=== PATIENT | male | born 1965 | race Caucasian/White ===

== ENCOUNTER 2019-10-26 09:04 | Observation (INO) | payer OTHER ==
[~2019-10-26] VITALS: Ht 182.9 cm; Wt 89.5 kg
--- NOTE | 2019-10-26 09:47 | NUR ---
THIS IS A 54 YO M W/ C/O 3 EPISODES FOR [facility] CP 8/10 RADIATING INTO LT NECK UP INTO HEAD PRODUCING TINGLING. PT REPORTS NOW HAS CONSISTENT CHEST PRESSURE 2/10. PT DENIES CARDIAC HX. PT RESTING ON VolpitNEY W/ CALL LIGHT IN REACH, CONNECTED TO ALL MONTIORING, VSS, NADN, EKG OBTAINED AND GIVEN TO ED MD. 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 NO NITRO GIVEN. AT BEDSIDE FOR ED EVAL.
--- NOTE | 2019-10-26 10:25 | NUR ---
PT REPORTS ANOTHER EPISODE OF CHEST PAIN THAT LASTED A FEW SECONDS APPROX 10 MINUTES AGO. RHYTHM REVIEWED ON MONITOR, 4 OCCASIONAL PVCS OBSERVED. UPDATED. PT RESTING ON Designer MaterialRNEY W/ CALL LIGHT IN REACH, RESP EVEN AND UNLABORED, NADN. VSS.
[2019-10-26 10:27] LABS: BASOPHILS # (AUTO) 0.06 x10^3/uL (0-0.1); BASOPHILS % (AUTO) 1 % (0-1); EOSINOPHILS # (AUTO) 0.02 x10^3/uL (0-0.4); EOSINOPHILS % (AUTO) 0 % (1-7); LYMPHOCYTES # (AUTO) 1.07 x10^3/uL (1-3.4); LYMPHOCYTES % (AUTO) 11 % (22-44); MD NO; MEAN CORPUSCULAR HGB CONC 33.2 g/dL (33.2-36.2); MEAN CORPUSCULAR VOLUME 96.3 fL (81-97); MEAN PLATELET VOLUME 8.3 fL (7.4-10.4); MONOCYTES % (AUTO) 7 % (2-9); NEUTROPHILS # (AUTO) 8.19 x10^3/uL (1.8-6.8); NEUTROPHILS % (AUTO) 82 % (42-75); PLATELET COUNT 150 x10^3/uL (130-400); RED BLOOD COUNT 4.27 x10^6/uL (4.38-5.82); RED CELL DISTRIBUTION WIDTH 12.8 % (9.4-14.8)
[2019-10-26 10:37] LABS: ALBUMIN 3.8 g/dL (3.4-5.0); ANION GAP 7 mmol/L (5-15); CALCIUM 9.2 mg/dL (8.5-10.1); CHLORIDE 109 mmol/L (98-107); CREATININE 1.19 mg/dL (0.7-1.3)
[2019-10-26 10:40] LABS: TROPONIN I < 0.015 ng/mL (0.000-0.045)
--- NOTE | 2019-10-26 10:47 | NUR ---
ALL TESTS RESULTED. PT IS UP FOR RECHECK AT THIS TIME.
--- NOTE | 2019-10-26 10:50 | NUR ---
PT REQUESTING PAIN MEDS FOR RT FOOT PAIN. UPDATED.
[2019-10-26] MEDS ORDERED: HYDROcodone/APAP 5/325 TABLET ONE (10:52)
--- NOTE | 2019-10-26 10:55 | NUR ---
PT MEDICATED PER EMAR. VSS, NADN. AWAITING RECHECK.
--- NOTE | 2019-10-26 10:57 | NUR ---
4 OCCASIONAL PVCS OBSERVED ON MONITOR WHILE IN ROOM W/ PT.
[2019-10-26] MEDS ORDERED: HYDROcodone/APAP 5/325 TABLET PO ONE (11:00)
[2019-10-26] MEDS ORDERED: ASPIRIN 81 MG TABLET CHEW PO ONE (12:00)
[2019-10-26] MEDS ORDERED: SODIUM CHLORIDE FLUSH 10ML SYR IVF PRN (12:30)
[2019-10-26 14:13] VITALS: BP 120/79
[2019-10-26] MEDS ORDERED: HEPARIN 5,000 UNITS/ML, 1ML ONE (14:56)
[2019-10-26] MEDS ORDERED: LABETALOL 5MG/ML, 20ML IVPush PRN (15:00)
[2019-10-26] MEDS ORDERED: ONDANSETRON 2MG/ML, 2ML IVPush PRN (15:00)
[2019-10-26] MEDS ORDERED: ACETAMINOPHEN 325 MG TABLET PO PRN (15:00)
[2019-10-26] MEDS ORDERED: hydrALAzine 20 MG/ML, 1ML IVPush PRN (15:00)
[2019-10-26] MEDS ORDERED: PROMETHAZINE 25 MG/ML, 1ML IM PRN (15:00)
[2019-10-26] MEDS ORDERED: MAALOX/HYOSCYAMINE/LIDOCAINE 45 ML BTL PO PRN (15:00)
[2019-10-26] MEDS ORDERED: NITROGLYCERIN 0.4 MG BOTTLE (25 TABS) SL PRN (15:00)
[2019-10-26] MEDS ORDERED: morphine SULFATE 10 MG/ML, 1ML IVPush PRN (15:00)
[2019-10-26] MEDS: SODIUM CHLORIDE 0.9% 1,000 ML IV SCH (15:07)
[2019-10-26] MEDS: HEPARIN 5,000 UNITS/ML, 1ML SQ SCH ×2 (15:10→22:25)
[2019-10-26] MEDS: OXYcodone IR 5MG TABLET PO PRN ×3 (15:18→21:10)
[2019-10-26 15:41] LABS: TROPONIN I < 0.015 ng/mL (0.000-0.045)
[2019-10-26] MEDS ORDERED: OMNIPAQUE 350 MG/ML, 100ML BOTTLE ONE (16:50)
[2019-10-26 20:50] VITALS: BP 120/79
[2019-10-26] MEDS ORDERED: ATORVASTATIN 40 MG TABLET PO SCH (21:00)
[2019-10-26] MEDS: COLCHICINE 0.6 MG CAPSULE PO SCH (21:10)
[2019-10-26 21:52] LABS: TROPONIN I < 0.015 ng/mL (0.000-0.045)
[2019-10-27 00:49] VITALS: BP 119/77
[2019-10-27 03:29] LABS: BASOPHILS # (AUTO) 0.02 x10^3/uL (0-0.1); BASOPHILS % (AUTO) 0 % (0-1); EOSINOPHILS # (AUTO) 0.08 x10^3/uL (0-0.4); EOSINOPHILS % (AUTO) 1 % (1-7); LYMPHOCYTES # (AUTO) 1.94 x10^3/uL (1-3.4); LYMPHOCYTES % (AUTO) 19 % (22-44); MD NO; MEAN CORPUSCULAR HEMOGLOBIN 32.1 pg (27.5-34.5); MEAN CORPUSCULAR HGB CONC 33.4 g/dL (33.2-36.2); MEAN PLATELET VOLUME 8.5 fL (7.4-10.4); MONOCYTES % (AUTO) 9 % (2-9); NEUTROPHILS # (AUTO) 7.07 x10^3/uL (1.8-6.8); NEUTROPHILS % (AUTO) 71 % (42-75); PLATELET COUNT 122 x10^3/uL (130-400); RED BLOOD COUNT 3.76 x10^6/uL (4.38-5.82); RED CELL DISTRIBUTION WIDTH 13.1 % (9.4-14.8)
[2019-10-27 03:34] LABS: ANION GAP 8 mmol/L (5-15); CALCIUM 8.5 mg/dL (8.5-10.1); CHLORIDE 103 mmol/L (98-107)
[2019-10-27 03:37] LABS: ALANINE AMINOTRANSFERASE 13 U/L (12-78); ALKALINE PHOSPHATASE 74 U/L (45-117); CREATININE 1.15 mg/dL (0.7-1.3); TOTAL PROTEIN 6.4 g/dL (6.4-8.2)
[2019-10-27 03:39] LABS: TROPONIN I < 0.015 ng/mL (0.000-0.045)
[2019-10-27] MEDS ORDERED: ASPIRIN 325 MG TABLET EC PO SCH (06:00)
[2019-10-27] MEDS: HEPARIN 5,000 UNITS/ML, 1ML SQ SCH ×2 (06:24→15:00)
[2019-10-27] MEDS: OXYcodone IR 5MG TABLET PO PRN (06:31)
[2019-10-27] MEDS ORDERED: predniSONE 50MG TABLET PO SCH (08:00)
[2019-10-27 08:07] VITALS: BP 116/75
[2019-10-27] MEDS ORDERED: REGADENOSON 0.4 MG/5 ML SYRINGE ONE (08:13)
[2019-10-27] MEDS: COLCHICINE 0.6 MG CAPSULE PO SCH (08:21)
[2019-10-27] MEDS: KETOROLAC 30 MG/1 ML IV PRN ×2 (08:32→14:44)
[2019-10-27 12:58] VITALS: BP 122/76
[2019-10-27] MEDS: SODIUM CHLORIDE 0.9% 1,000 ML IV SCH (14:00)
[2019-10-27] MEDS ORDERED: IBUP-1902 PO (14:35)
[2019-10-27] MEDS ORDERED: COLC0.6C3 PO (14:35)
[2019-10-27] MEDS ORDERED: PRED50TA PO (14:35)
[2019-10-27] MEDS ORDERED: OMEP-110 PO (14:35)
[2019-10-27] MEDS ORDERED: ASPI-515 PO (14:35)
[2019-10-27] MEDS ORDERED: ACET325T26 PO (14:35)
== END 2019-10-27 16:27 | disposition home or self-care (01) ==
LOC: ED 10:02 → EDIP 13:18 → INTOOBSV 13:18 → 5SO 13:30 → DCLOUNGE 10-27 16:07
PROVIDERS: ADMIT Hospitalist; ATTEND Hospitalist
DX: R07.89 Other chest pain (principal); D72.829 Elevated white blood cell count, unspecified; I20.0 Unstable angina; R73.9 Hyperglycemia, unspecified; E87.1 Hypo-osmolality and hyponatremia; I49.3 Ventricular premature depolarization; M10.9 Gout, unspecified; Z79.899 Other long term (current) drug therapy; M25.571 Pain in right ankle and joints of right foot
CPT/HCPCS: 36415; 71045; 71275; 73600; 78452; 80048; 80053; 82040; 83036; 84484; 84550; 85025; 85379; 93005; 93017; 93306; 96372; 96374; 96376; 99285; A9502; C9898; G0378; J1644; J1885; J2785; J7030; J7512; Q9967